=== PATIENT | male | born 1970 | race Caucasian/White ===

== ENCOUNTER 2016-10-27 20:33 | Emergency (ER) | payer MEDICARE ==
[~2016-10-27] VITALS: Ht 180.3 cm; Wt 119.7 kg
[~2016-10-27 20:33] MED LIST: ALBUTEROL0.63 MG/3 INH; ASPIRIN EC650 MG PO; ASPIRIN325 M2 PO; COREG3.125 MG PO; CYCLOBENZAPRINE10 MG PO; FLEXERIL10 MG PO; FUROSEMIDE20 M1 PO; HYDROCODONE BIT1 T11 PO; LEVAQUIN750 M1 PO; LISINOPRIL2.5 MG PO; METFORMIN500 MG PO; MOTRIN800 MG PO; NAPROSYN500 MG PO; NORCO 5-325 TA1 EACH PO; POTASSIUM CHLO10 ME5 PO; PROZAC10 MG PO; SIMVASTATIN20 MG PO; VICODIN 5-3001 EACH PO; VICODIN 5/500 505 MG PO; ZANTAC150 MG PO
[2016-10-27 20:39] VITALS: BP 167/94
[2016-10-27] MEDS ORDERED: COREG12.5 M1 PO (20:41)
[2016-10-27] MEDS ORDERED: PRINIVIL10 MG PO (20:41)
[2016-10-27] MEDS ORDERED: VITAMIN D-32000 UNI1 PO (20:41)
[2016-10-27] MEDS ORDERED: ZOLOFT50 MG PO (20:42)
[2016-10-27] MEDS ORDERED: ASPIRIN325 M2 PO (20:42)
[2016-10-27] MEDS ORDERED: METFORMIN500 MG PO (20:42)
[2016-10-27] MEDS ORDERED: ZOCOR20 MG PO (20:42)
[2016-10-27] MEDS ORDERED: KEFLEX500 M1 PO (21:16)
== END 2016-10-27 22:23 | disposition home or self-care (01) ==
LOC: ED 20:33
DX: L02.02 Furuncle of face (principal); F17.200 Nicotine dependence, unspecified, uncomplicated; F12.90 Cannabis use, unspecified, uncomplicated; I25.10 Atherosclerotic heart disease of native coronary artery without angina pectoris; I50.9 Heart failure, unspecified; G47.33 Obstructive sleep apnea (adult) (pediatric); Z98.890 Other specified postprocedural states; Z79.82 Long term (current) use of aspirin; Z79.899 Other long term (current) drug therapy

== ENCOUNTER 2016-11-30 15:44 | Emergency (ER) | payer MEDICARE ==
[~2016-11-30] VITALS: Ht 180.3 cm; Wt 115.7 kg
[~2016-11-30 15:44] MED LIST changes: +COREG12.5 M1 PO; +KEFLEX500 M1 PO; +PRINIVIL10 MG PO; +VITAMIN D-32000 UNI1 PO; +ZOCOR20 MG PO; +ZOLOFT50 MG PO
[2016-11-30 15:59] VITALS: BP 145/87
[2016-11-30] MEDS ORDERED: CIPRO500 MG PO (16:25)
[2016-11-30] MEDS ORDERED: HYDROCODONE BIT1 T11 PO (16:25)
== END 2016-11-30 16:34 | disposition home or self-care (01) ==
LOC: ED 15:44
DX: N48.1 Balanitis (principal); F17.200 Nicotine dependence, unspecified, uncomplicated; Z95.5 Presence of coronary angioplasty implant and graft; E11.9 Type 2 diabetes mellitus without complications; Z79.82 Long term (current) use of aspirin; Z79.899 Other long term (current) drug therapy

== ENCOUNTER 2017-09-27 09:40 | Emergency (ER) | payer MEDICARE, MEDICAID ==
[~2017-09-27] VITALS: Ht 180.3 cm; Wt 117.9 kg
[~2017-09-27 09:40] MED LIST changes: +CIPRO500 MG PO
[2017-09-27] MEDS ORDERED: DEPAKOTE ER500 MG PO (09:44)
[2017-09-27] MEDS ORDERED: DEPAKOTE500 MG PO (09:44)
== END 2017-09-27 11:11 | disposition home or self-care (01) ==
LOC: ED 09:40
DX: S61.214A Laceration without foreign body of right ring finger without damage to nail, initial encounter (principal); I25.10 Atherosclerotic heart disease of native coronary artery without angina pectoris; I50.9 Heart failure, unspecified; F12.10 Cannabis abuse, uncomplicated; I25.2 Old myocardial infarction; G47.33 Obstructive sleep apnea (adult) (pediatric); F17.200 Nicotine dependence, unspecified, uncomplicated; Z98.890 Other specified postprocedural states; Z79.899 Other long term (current) drug therapy; Z79.82 Long term (current) use of aspirin; W45.8XXA Other foreign body or object entering through skin, initial encounter; Y93.89 Activity, other specified; Y92.69 Other specified industrial and construction area as the place of occurrence of the external cause; Y99.9 Unspecified external cause status

== ENCOUNTER → 2018-06-20 | Outpatient (CLI) | payer MEDICARE ==
[~2018-06-20] MED LIST changes: +DEPAKOTE ER500 MG PO; +DEPAKOTE500 MG PO
== END | disposition home or self-care (01) ==
LOC: RAD 12:58
DX: M54.5 Low back pain (principal)

== ENCOUNTER → 2018-07-17 | Outpatient (CLI) | payer MEDICARE | END | disposition home or self-care (01) | LOC: US 15:00 | DX: M79.604 Pain in right leg (principal); R09.89 Other specified symptoms and signs involving the circulatory and respiratory systems ==

== ENCOUNTER → 2018-08-28 | Outpatient (CLI) | payer MEDICARE | END | disposition home or self-care (01) | LOC: RAD 11:19 | DX: M25.511 Pain in right shoulder (principal) ==

== ENCOUNTER → 2019-12-11 | Outpatient (CLI) | payer OTHER ==
[2019-12-11 15:33] LABS: BASO % 0.4 % (0.0-1.0); EOS # 0.2 10*3/uL (0.0-0.4); EOS % 2.2 % (1.0-4.0); HEMATOCRIT 48.4 % (42.0-52.0); LYMPH # 1.7 10*3/uL (1.3-4.4); LYMPH % 20.8 % (27.0-41.0); MEAN CELL VOLUME 84.9 fl (80.0-94.0); MEAN CORPUSCULAR HGB 29.3 pg (27.0-31.0); MEAN CORPUSCULAR HGB CONC 34.5 g/dl (33.0-37.0); MEAN PLATELET VOLUME 10.3 fl (9.6-12.3); MONO # 0.6 10*3/uL (0.1-1.0); MONO % 7.7 % (3.0-9.0); NEUT # 5.5 10*3/uL (2.3-7.9); NEUT % 68.7 % (47.0-73.0); PLATELET COUNT AUTOMATED 284 10*3/uL (130-400); RED CELL DISTRI WIDTH 13.6 % (0-14.5)
[2019-12-11 15:49] LABS: CHLORIDE 104 mmol/L (98-107); POTASSIUM 2.9 mmol/L (3.5-5.1); SODIUM 138 mmol/L (136-145)
[2019-12-11 15:56] LABS: ALKALINE PHOSPHATASE 111 U/L (45-117); BUN 24 mg/dl (7-24); CHOLESTEROL 119 mg/dL (<200); CREATININE 1.35 mg/dL (0.70-1.30); FREE T4 1.07 ng/dl (0.76-1.46); HDL CHOLESTEROL 29 mg/dl (40-60); LDL CHOLESTEROL 49 mg/dL (9-159); SGOT/AST 26 IU/L (3-35); SGPT/ALT 30 U/L (12-78); TOTAL PROTEIN 8.1 gm/dL (6.4-8.2); TRIGLYCERIDES 207 mg/dl (<150); VLDL CHOLESTEROL 41 mg/dL (6-40)
== END | disposition home or self-care (01) ==
LOC: LAB 13:50
PROVIDERS: Family Medicine
DX: I10 Essential (primary) hypertension (principal); E11.9 Type 2 diabetes mellitus without complications; E78.00 Pure hypercholesterolemia, unspecified

== ENCOUNTER 2020-01-15 13:20 | Emergency (ER) | payer OTHER ==
[~2020-01-15] VITALS: Wt 102.5 kg
[2020-01-15 13:26] VITALS: BP 160/112
[2020-01-15] MEDS ORDERED: ROBAXIN-750750 MG PO (15:57)
[2020-01-15] MEDS ORDERED: PREDNISONE20 M1 PO (15:57)
[2020-01-15] MEDS ORDERED: CYCLOBENZAPRINE5 M3 PO (17:11)
== END 2020-01-15 23:04 | disposition home or self-care (01) ==
LOC: ED 13:20
DX: S39.012A Strain of muscle, fascia and tendon of lower back, initial encounter (principal); L23.7 Allergic contact dermatitis due to plants, except food; M62.830 Muscle spasm of back; F17.200 Nicotine dependence, unspecified, uncomplicated; Z79.899 Other long term (current) drug therapy; Z79.82 Long term (current) use of aspirin; X58.XXXA Exposure to other specified factors, initial encounter; Y93.89 Activity, other specified; Y92.89 Other specified places as the place of occurrence of the external cause; Y99.8 Other external cause status

== ENCOUNTER 2020-09-26 05:31 | Emergency (ER) | payer OTHER ==
[~2020-09-26 05:31] MED LIST changes: +CYCLOBENZAPRINE5 M3 PO; +PREDNISONE20 M1 PO; +ROBAXIN-750750 MG PO
[2020-09-26 06:01] LABS: BASO % 0.5 % (0.0-1.0); EOS # 0.1 10*3/uL (0.0-0.4); EOS % 0.8 % (1.0-4.0); HEMATOCRIT 47.6 % (42.0-52.0); LYMPH # 0.7 10*3/uL (1.3-4.4); LYMPH % 12.4 % (27.0-41.0); MEAN CELL VOLUME 83.8 fl (80.0-94.0); MEAN CORPUSCULAR HGB 29.2 pg (27.0-31.0); MEAN CORPUSCULAR HGB CONC 34.9 g/dl (33.0-37.0); MEAN PLATELET VOLUME 10.3 fl (9.6-12.3); MONO # 0.5 10*3/uL (0.1-1.0); MONO % 8.1 % (3.0-9.0); NEUT # 4.6 10*3/uL (2.3-7.9); NEUT % 77.9 % (47.0-73.0); PLATELET COUNT AUTOMATED 183 10*3/uL (130-400); RED BLOOD COUNT 5.68 10*6/uL (4.50-5.90); RED CELL DISTRI WIDTH 12.2 % (0-14.5); WHITE BLOOD COUNT 5.9 10*3/uL (4.8-10.8)
[2020-09-26 06:09] VITALS: BP 145/77
[2020-09-26 06:16] LABS: ALBUMIN 3.5 gm/dl (3.1-4.5); ALKALINE PHOSPHATASE 177 U/L (45-117); BUN 13 mg/dl (7-24); CHLORIDE 103 mmol/L (98-107); CPK 86 U/L (39-308); CREATININE 1.22 mg/dL (0.70-1.30); POTASSIUM 4.2 mmol/L (3.5-5.1); SGOT/AST 13 IU/L (3-35); SGPT/ALT 30 U/L (12-78); SODIUM 134 mmol/L (136-145); TOTAL PROTEIN 6.9 gm/dL (6.4-8.2)
[2020-09-26 06:17] LABS: CKMB 2.2 ng/ml (0.5-3.6)
== END 2020-09-26 07:30 | disposition short-term general hospital (02) ==
LOC: ED 05:31
PROVIDERS: Emergency Medicine
DX: I63.511 Cerebral infarction due to unspecified occlusion or stenosis of right middle cerebral artery (principal); I25.10 Atherosclerotic heart disease of native coronary artery without angina pectoris; E11.9 Type 2 diabetes mellitus without complications; E78.00 Pure hypercholesterolemia, unspecified; I11.0 Hypertensive heart disease with heart failure; I50.9 Heart failure, unspecified; F32.9 Major depressive disorder, single episode, unspecified; I25.2 Old myocardial infarction; F17.200 Nicotine dependence, unspecified, uncomplicated; Z79.899 Other long term (current) drug therapy; Z79.82 Long term (current) use of aspirin; Z98.890 Other specified postprocedural states